=== PATIENT | male | born 1995 | race Caucasian/White ===

== ENCOUNTER 2017-06-09 15:51 | Emergency (ER) | payer OTHER ==
[2017-06-09] MEDS ORDERED: HYDROmorphONE/DILAUDID 1 MG/ML SYR IM ONE (16:16)
[2017-06-09] MEDS ORDERED: ONDANSETRON DISINTEGRATING 4 MG TAB PO ONE (16:17)
--- NOTE | 2017-06-09 16:18 | EDPHY ---
H & P Time Seen by Provider: 06/09/17 16:15 HPI/ROS: CHIEF COMPLAINT: Head injury HISTORY OF PRESENT ILLNESS: The patient is a 22-year-old healthy man who comes in concerned for concussion. His dad is here with him. He states that he stood up and hit his head on a pipe wrench just at the top of his forehead. He did not lose consciousness but felt dazed. He has nystagmus at baseline. He has not had any visual changes. He has a mild headache and mild nausea but no vomiting. He is concerned because he has had concussions 2 other times in the last 6 months. His dad states that those other 2 times more significant and that he lost consciousness at those times. The patient is anxious and concerned that he may have a brain injury. He is here requesting a CT scan. He does not have any paresthesias or weakness. REVIEW OF SYSTEMS: Constitutional: denies: chills, fever, recent illness, recent injury EENTM: denies: blurred vision, double vision, nose congestion Respiratory: denies: cough, shortness of breath Cardiac: denies: chest pain, irregular heart rate, lightheadedness, palpitations Gastrointestinal/Abdominal: denies: abdominal pain, diarrhea, nausea, vomiting, blood streaked stools Genitourinary: denies: dysuria, frequency, hematuria, pain Musculoskeletal: denies: joint pain, muscle pain Skin: denies: lesions, rash, jaundice, bruising Neurological: See HPI Hematologic/Lymphatic: denies: blood clots, easy bleeding, easy bruising Immunologic/allergic: denies: HIV/AIDS, transplant EXAM: GENERAL: Well-appearing, well-nourished and in no acute distress. HEAD: Small abrasion/contusion to central upper forehead. No crepitus or deformity EYES: Nystagmus at baseline, Pupils equal round and reactive to light, extraocular movements intact, sclera anicteric, conjunctiva are normal. ENT: TMs normal, nares patent, oropharynx clear without exudates. Moist mucous membranes. NECK: Normal range of motion, supple without lymphadenopathy or JVD. LUNGS: Breath sounds clear to auscultation bilaterally and equal. No wheezes rales or rhonchi. HEART: Regular rate and rhythm without murmurs, rubs or gallops. ABDOMEN: Soft, nontender, normoactive bowel sounds. No guarding, no rebound. No masses appreciated. BACK: No CVA tenderness, no spinal tenderness, step-offs or deformities EXTREMITIES: Normal range of motion, no pitting or edema. No clubbing or cyanosis. NEUROLOGICAL: Cranial nerves II through XII grossly intact. Normal speech, normal gait. 5/5 strength, normal movement in all extremities, normal sensation PSYCH: Normal mood, normal affect. SKIN: Warm, dry, normal turgor, no visible rashes or lesions. Source: Patient Exam Limitations: No limitations - Medical/Surgical History Hx Asthma: No Hx Chronic Respiratory Disease: No Hx Diabetes: No Hx Cardiac Disease: No Hx Renal Disease: No Hx Cirrhosis: No Hx Alcoholism: No - Family History Significant Family History: No pertinent family hx - Social History Smoking Status: Never smoked Alcohol Use: Sober Drug Use: None Constitutional: Initial Vital Signs Temperature (C) 37 C 06/09/17 16:19 Heart Rate 89 06/09/17 16:19 Respiratory Rate 16 06/09/17 16:19 Blood Pressure 132/84 H 06/09/17 16:19 O2 Sat (%) 97 06/09/17 16:19 O2 Delivery Mode Room Air Allergies/Adverse Reactions: No Known Allergies Allergy (Unverified 06/09/17 16:22) Home Medications: Medication Instructions Recorded NK [No Known Home Meds] 06/09/17 Medical Decision Making - Diagnostics Imaging Results: Imaging Impressions Head CT 06/09/17 16:37 Impression: Normal brain. No intracranial hemorrhage or fracture. Findings discussed with Emergency Department physician, Dr. Jeet Smith on June 09, 2017 at 1649 hours. ED Course/Re-evaluation: 4:50 p.[address]. we discussed the CT results. The patient and dad are relieved. We discussed concussion precautions. They are happy with this and declines further workup or testing. He is feeling better after the medication given. Head CT ordered in this adult patient for trauma for the following indication: Headache, nausea, repeat injury and patient concern Differential Diagnosis: Partial list of the Differential diagnosis considered include but were not limited to; concussion, contusion and although unlikely based on the history and physical exam, I also considered fracture, intracranial injury, neck injury. I discussed these differential diagnoses and the plan with the patient as well as the usual and expected course. The patient understands that the diagnosis is provisional and that in medicine we are not always correct and that further workup is often warranted. Usual and customary warnings were given. All of the patient's questions were answered. The patient was instructed to return to the emergency department should the symptoms at all worsen or return, otherwise to followup with the physician as we discussed. - Data Points Medications Given: Discontinued Medications Hydromorphone HCl (Dilaudid) 2 mg IM EDNOW ONE Stop: 06/09/17 16:17 Last Admin: 06/09/17 16:47 Dose: 2 mg Ondansetron HCl (Zofran Odt) 4 mg PO EDNOW ONE Stop: 06/09/17 16:18 Last Admin: 06/09/17 16:47 Dose: 4 mg Departure - Departure Disposition: Home, Routine, Self-Care Clinical Impression: Concussion Qualifiers: Encounter type: initial encounter Loss of consciousness presence/duration: without LOC Qualified Code(s): S06.0X0A - Concussion without loss of consciousness, initial encounter Condition: Good Instructions: Concussion (ED), Post Concussion Syndrome (ED) Referrals: Keily Berman MD [Medical Doctor] - As per Instructions Stand Alone Forms: Work Excuse
[2017-06-09 16:21] VITALS: TEMP 98.6; O2SAT 97
[2017-06-09 17:08] VITALS: BP 137/90; PULSE 71; RESP 18
== END 2017-06-09 17:13 | disposition home or self-care (01) ==
LOC: CED 15:51
DX: S06.0X0A Concussion without loss of consciousness, initial encounter (principal); W22.8XXA Striking against or struck by other objects, initial encounter
CPT/HCPCS: 70450-PO; J1170